=== PATIENT | male | born 1935 | race Caucasian/White ===

== ENCOUNTER → 2018-02-14 | Outpatient (CLI) | payer OTHER ==
[~2018-02-14] MED LIST: ALBU90OI INH; ATOR40TA PO; CALC.25 PO; CEFU500 PO; CETI10 PO; CETI5; CETI5 PO; CIPR500 PO; CITA20 PO; CYCL10 PO; CYCLOPHOSPHAMID50 MG; Calcitriol0.25 MCG PO; Coumadin5 MG PO; DILT240 PO; DILT300 PO; DILTIAZEM ER360 MG PO; DOXYCYCLINE PO; DULO60 PO; Drisdol50000 UNIT PO; ERGO50000; ERGO50000 PO; FAMO20 PO; FINA5 PO; FLEC100; FURO40; HEPARIN; HYDACE5 PO; HYDPAM50 PO; Kristalose20 GM PO; LEVSOD50 PO; LISI10; LOSA50; LOSHYD100 PO; METO100; METO100ER PO; MIRT15 PO; MIRTAZAPINE PO; MUPI2TC TOP; Norco 10-325 T1 EACH; OLME20 PO; PARI1 PO; POTCHL10ER; POTCHL10ER PO; PRAVASTATIN PO; Pravastatin Sod40 MG PO; RANI150; Remeron45 MG PO; SENN187 PO; SYNTHROID25 MCG PO; TAMS.4ER; TAMS.4ER PO; TAZTIA XT360 MG PO; TERA1 PO; TIROSINT75 MCG PO; TRIHYD253B; TRIHYD5075; TRIHYD5075 PO; TUDORZA PRESS400 MCG IH; TUDORZA PRESS400 MCG INH; WARF10; WARF10 PO; WARF5; WARF7.5; WARF7.5 PO; ZYRTEC10 M2 PO
[2018-02-14 09:47] LABS: Hematocrit 32.9 % (37.0-53.0); Hemoglobin 10.8 g/dL (13.5-17.5)
== END ==
LOC: LAB SHORT 09:36 → LAB 09:36
PROVIDERS: Internal Medicine
DX: D64.9 Anemia, unspecified (principal)
CPT/HCPCS: 85014; 85018

== ENCOUNTER → 2018-04-02 | Outpatient (CLI) | payer OTHER ==
[2018-04-02 11:44] LABS: Hematocrit 32.8 % (37.0-53.0); Hemoglobin 10.5 g/dL (13.5-17.5); Mean Corpuscular HGB 31.3 pg (26.0-34.0); Mean Corpuscular Volume 98 fL (80-100); Mean Platelet Volume 10.2 fL (9.1-12.4); Platelet Count 254 K/mm3 (150-400); RDW Coefficient Variation 15.4 % (11.7-14.2); RDW Standard Deviation 54.6 fL (35.1-46.3); Red Blood Cell Count 3.35 M/mm3 (4.30-5.90); White Blood Cell Count 30.86 K/mm3 (4.00-11.30)
[2018-04-02 12:52] LABS: BAND PERCENT MAN 2 % (0-8); BASOPHILS PERCENT MAN 0 % (0-2); EOSINOPHILS ABSOLUTE MAN 0.61 K/mm3 (0.00-0.68); EOSINOPHILS PERCENT MAN 2 % (0-6); LYMPHOCYTES ABSOLUTE MAN 25.92 K/mm3 (0.84-5.20); LYMPHOCYTES PERCENT MAN 84 % (21-46); MONOCYTES ABSOLUTE MAN 0.92 K/mm3 (0.16-1.47); MONOCYTES PERCENT MAN 3 % (4-13); NEUTROPHILS ABSOLUTE MAN 3.39 K/mm3 (1.96-9.15); SEG NEUTROPHILS PERCENT MAN 9 % (41-73); TOTAL CELLS COUNTED 100
== END ==
LOC: LAB 10:00 → LAB SHORT 10:00
PROVIDERS: Internal Medicine
DX: D72.829 Elevated white blood cell count, unspecified (principal); N18.6 End stage renal disease
CPT/HCPCS: 85025

== ENCOUNTER 2019-02-10 19:09 | Observation (INO) | payer OTHER ==
[~2019-02-10] VITALS: Ht 182.9 cm; Wt 116.8 kg
[~2019-02-10 19:09] MED LIST changes: -ERGO50000; +HYDR1TAB94 PO; -METO100ER PO; +METO50ER PO; +SEVEC800 PO; +Senna-Docusate1 EACH PO; +VENL75ER PO; +Voltaren100 GM TOP
[2019-02-10 19:51] LABS: BASOPHILS ABSOLUTE AUTO 0.06 K/mm3 (0.00-0.23); BASOPHILS PERCENT AUTO 1 % (0-2); EOSINOPHILS ABSOLUTE AUTO 0.25 K/mm3 (0.00-0.68); EOSINOPHILS PERCENT AUTO 3 % (0-6); Hematocrit 33.9 % (37.0-53.0); Hemoglobin 10.8 g/dL (13.5-17.5); IMMATURE GRAN ABSOLUTE AUTO 0.04 K/mm3 (0.00-0.10); IMMATURE GRAN PERCENT AUTO 1 % (0-1); LYMPHOCYTES ABSOLUTE AUTO 1.79 K/mm3 (0.84-5.20); LYMPHOCYTES PERCENT AUTO 22 % (21-46); MONOCYTES ABSOLUTE AUTO 1.45 K/mm3 (0.16-1.47); MONOCYTES PERCENT AUTO 18 % (4-13); Mean Corpuscular HGB 31.5 pg (26.0-34.0); Mean Corpuscular HGB Conc 31.9 g/dL (31.5-36.5); Mean Corpuscular Volume 99 fL (80-100); Mean Platelet Volume 9.3 fL (9.1-12.4); NEUTROPHILS ABSOLUTE AUTO 4.62 K/mm3 (1.96-9.15); NEUTROPHILS PERCENT AUTO 56 % (41-73); Platelet Count 221 K/mm3 (150-400); RDW Coefficient Variation 16.4 % (11.7-14.2); RDW Standard Deviation 59.3 fL (35.1-46.3); Red Blood Cell Count 3.43 M/mm3 (4.30-5.90); White Blood Cell Count 8.21 K/mm3 (4.00-11.30)
[2019-02-10 20:12] LABS: Albumin, Blood 3.1 g/dL (3.4-5.0); Albumin/Globulin Ratio 0.9 (0.8-1.8); Bilirubin, Total 0.7 mg/dL (0.1-1.0); Bun/Creatinine Ratio 9.4 (12.0-20.0); Calcium, Blood 8.7 mg/dL (8.5-10.1); Creatinine, Blood 7.42 mg/dL (0.60-1.20); Globulin, Blood 3.4 g/dL (2.2-4.0); Potassium, Blood 4.6 mmol/L (3.5-5.5); Total Protein, Blood 6.5 g/dL (6.4-8.2); Troponin I 0.094 ng/mL (0.000-0.040)
[2019-02-10] MEDS ORDERED: Flonase 0.05% N16 GM (21:28)
[2019-02-10] MEDS ORDERED: DONE10 PO (21:29)
[2019-02-10] MEDS ORDERED: CALQUENCE100 MG PO (21:58)
[2019-02-10] MEDS ORDERED: Vitamin D2000 UNIT PO (21:58)
[2019-02-10] MEDS ORDERED: VITAMIN D50000 UNIT PO (21:59)
[2019-02-10] MEDS ORDERED: ZYRTEC10 M2 PO (22:01)
[2019-02-10] MEDS ORDERED: Cymbalta20 MG PO (22:02)
[2019-02-10 22:21] LABS: International Normalized Ratio 1.32; Prothrombin Time Results 13.6 Sec (9.7-11.5)
[2019-02-10] MEDS ORDERED: DONE5 PO (23:24)
[2019-02-10] MEDS ORDERED: FINA5 PO (23:26)
--- NOTE | 2019-02-10 23:30 | NUR ---
PCU ADMIT PT BROUGHT TO PCU RM 16 FROM THE ER BY TARIK @ APPROX 2300. PT ABLE TO STAND AND TRANSFER TO PCU BED W/ SBA. PT A&O X4. VSS. DIALYSIS NURSE IN ROOM FOR IN ROOM HEMODIALYSIS UPON PT ARRIVAL. PT LUNG SOUNDS CLEAR, DIM IN BASES. SPO2 > 92% ON 2L NC. MONITOR SHOWS AFIB, HR 80-100. PT STATES HAVING MISSED DIALYSIS SUNDAY D/T DIARRHEA BUT REPORTS NO FURTHER DIARRHEA SINCE THEN, STATING BM TODAY TO BE FORMED. WILL CONTINUE TO MONITOR AND PROVIDE CARE.
--- NOTE | 2019-02-10 23:50 | NUR ---
STAT DIALYSIS ORDERED BY DR WILBURN. HD 1:1 NON-ROUTINE HOURS. PATIENT FROM ER TO PCU 16 VIA W/C. PT UNABLE TO LAY FLAT OR RECLINE DUE TO SOB. PATIENT POSITIONED IN BED WITH HEAD UP AND 02 PER N/C APPLIED WITH PATIONT VERB TOLERANCE. MAX UF ORDERED TOLERATED.
--- NOTE | 2019-02-11 03:01 | NUR ---
IN ROOM DIALYSIS BEGUN UPON PT ARRIVAL TO UNIT BY DIALYSIS NURSE. DIALYSIS COMPLETE @ APPROX 0230.
[2019-02-11 04:24] LABS: Albumin, Blood 2.8 g/dL (3.4-5.0); Anion Gap 7 mmol/L (6-16); Blood Urea Nitrogen 40 mg/dL (8-24); Bun/Creatinine Ratio 8.3 (12.0-20.0); CO2, Blood 29 mmol/L (21-32); Calcium, Blood 8.6 mg/dL (8.5-10.1); Chloride, Blood 106 mmol/L (98-108); Creatinine, Blood 4.82 mg/dL (0.60-1.20); Glomerular Filtration Rate 12 (60-); Glucose, Blood 80 mg/dL (70-99); Magnesium, Blood 2.2 mg/dL (1.6-2.4); Phosphorus, Blood 3.4 mg/dL (2.5-4.9); Potassium, Blood 3.7 mmol/L (3.5-5.5); Sodium, Blood 142 mmol/L (136-145)
--- NOTE | 2019-02-11 04:56 | NUR ---
SHIFT SUMMARY PT A&O X4. DIALYSIS DONE IN PT ROOM THIS SHIFT FROM APPROX 2300 TO APPROX 0230. LUNG SOUNDS CLEAR, SPO2 > 92% ON 2L NC OR CPAP. PT WEARING CPAP MAJORITY OF SHIFT. MONITOR SHOWS AFIB, HR 80-110. +1 EDEMA TO LOWER L LEG. TRACE EDEMA TO LOWER R LEG. PT IN BED W/ CALL LIGHT IN REACH. WILL CONTINUE TO MONITOR AND PROVIDE CARE UNTIL REPORT OFF TO DAY SHIFT RN.
[2019-02-11 12:29] LABS: International Normalized Ratio 1.32; Prothrombin Time Results 13.6 Sec (9.7-11.5)
[2019-02-11] MEDS ORDERED: WARF5 PO (12:31)
[2019-02-11] MEDS ORDERED: SEVE800 PO (12:33)
--- NOTE | 2019-02-11 13:35 | NUR ---
DISCHARGE NOTE PT STABLE FOR DISCHARGE. IV REMOVED. DISCHARGE INSTRUCTIONS AND DISCHARGE MEDICATIONS REVIEWED WITH PT AND DAUGHTER. PT AND DAUGHTER VERBALIZE UNDERSTANDING AND DENY QUESTIONS. PT DISCHARGED VIA WHEELCHAIR TO WAITING CAR WITH BELONGINGS.
== END 2019-02-11 13:34 | disposition home or self-care (01) ==
LOC: ER 19:09 → PCU 19:10
PROVIDERS: Emergency Medicine; ADMIT Internal Medicine
DX: I13.2 Hypertensive heart and chronic kidney disease with heart failure and with stage 5 chronic kidney disease, or end stage renal disease (principal); I50.30 Unspecified diastolic (congestive) heart failure; N18.6 End stage renal disease; R77.8 Other specified abnormalities of plasma proteins; J44.9 Chronic obstructive pulmonary disease, unspecified; I48.91 Unspecified atrial fibrillation; F32.9 Major depressive disorder, single episode, unspecified; G47.33 Obstructive sleep apnea (adult) (pediatric); Z99.2 Dependence on renal dialysis; Z87.442 Personal history of urinary calculi; Z79.01 Long term (current) use of anticoagulants; Z99.89 Dependence on other enabling machines and devices; Z79.899 Other long term (current) drug therapy; Z88.8 Allergy status to other drugs, medicaments and biological substances; Z88.2 Allergy status to sulfonamides; Z88.0 Allergy status to penicillin; Z88.1 Allergy status to other antibiotic agents
CPT/HCPCS: 36415; 71046; 80053; 80069; 83735; 83880; 84484; 85025; 85610; 93005; 93010; 94660; 94762; 99285-25; G0257; G0378

== ENCOUNTER 2019-04-22 05:26 | Emergency (ER) | payer OTHER ==
[~2019-04-22] VITALS: Ht 182.9 cm; Wt 120.2 kg
[~2019-04-22 05:26] MED LIST changes: +CALQUENCE100 MG PO; +Cymbalta20 MG PO; +DONE10 PO; +DONE5 PO; +Flonase 0.05% N16 GM; +SEVE800 PO; +VITAMIN D50000 UNIT PO; +Vitamin D2000 UNIT PO; +WARF5 PO
== END 2019-04-22 06:20 | disposition home or self-care (01) ==
LOC: ER 05:26
DX: K91.841 Postprocedural hemorrhage of a digestive system organ or structure following other procedure (principal); I12.0 Hypertensive chronic kidney disease with stage 5 chronic kidney disease or end stage renal disease; N18.6 End stage renal disease; I48.91 Unspecified atrial fibrillation; F32.9 Major depressive disorder, single episode, unspecified; Z87.891 Personal history of nicotine dependence; Z88.0 Allergy status to penicillin; Z88.1 Allergy status to other antibiotic agents; Z88.8 Allergy status to other drugs, medicaments and biological substances; Z79.899 Other long term (current) drug therapy; Z79.01 Long term (current) use of anticoagulants
CPT/HCPCS: 36416; 85610; 99282

== ENCOUNTER 2021-01-12 23:12 | Emergency (ER) | payer OTHER ==
[~2021-01-12] VITALS: Ht 185.4 cm; Wt 125.6 kg
[~2021-01-12 23:12] MED LIST changes: -Vitamin D2000 UNIT PO
[2021-01-12 23:38] LABS: BASOPHILS ABSOLUTE AUTO 0.03 K/mm3 (0.00-0.23); BASOPHILS PERCENT AUTO 1 % (0-2); EOSINOPHILS ABSOLUTE AUTO 0.53 K/mm3 (0.00-0.68); EOSINOPHILS PERCENT AUTO 11 % (0-6); Hematocrit 30.8 % (37.0-53.0); IMMATURE GRAN ABSOLUTE AUTO 0.05 K/mm3 (0.00-0.10); IMMATURE GRAN PERCENT AUTO 1 % (0-1); LYMPHOCYTES ABSOLUTE AUTO 1.19 K/mm3 (0.84-5.20); LYMPHOCYTES PERCENT AUTO 24 % (21-46); MONOCYTES ABSOLUTE AUTO 0.77 K/mm3 (0.16-1.47); MONOCYTES PERCENT AUTO 15 % (4-13); Mean Corpuscular HGB 33.8 pg (26.0-34.0); Mean Corpuscular HGB Conc 32.5 g/dL (31.5-36.5); Mean Corpuscular Volume 104 fL (80-100); Mean Platelet Volume 8.9 fL (9.1-12.4); NEUTROPHILS ABSOLUTE AUTO 2.46 K/mm3 (1.96-9.15); NEUTROPHILS PERCENT AUTO 49 % (41-73); Platelet Count 194 K/mm3 (150-400); RDW Coefficient Variation 14.6 % (11.7-14.2); RDW Standard Deviation 55.8 fL (35.1-46.3); Red Blood Cell Count 2.96 M/mm3 (4.30-5.90); White Blood Cell Count 5.03 K/mm3 (4.00-11.30)
[2021-01-12] MEDS ORDERED: OLANZAPINE PO (23:38)
[2021-01-12] MEDS ORDERED: METO25ER PO (23:38)
[2021-01-12] MEDS ORDERED: COLESTIPOL HCL1 G1 PO (23:39)
[2021-01-12] MEDS ORDERED: DICLOFENAC SOD100 G1 TOP (23:39)
[2021-01-12] MEDS ORDERED: DONEPEZIL HCL10 M1 PO (23:39)
[2021-01-12] MEDS ORDERED: ROPINIROLE HCL0.5 MG PO (23:40)
[2021-01-12] MEDS ORDERED: ATOR40TA PO (23:41)
[2021-01-12] MEDS ORDERED: OMEP20ER PO (23:41)
[2021-01-12] MEDS ORDERED: ONDA4ODT SL (23:42)
[2021-01-12] MEDS ORDERED: Acetaminophen325 M1 PO (23:43)
[2021-01-12] MEDS ORDERED: MERIBIN5 MG PO (23:44)
[2021-01-12] MEDS ORDERED: LOPE2C PO (23:45)
[2021-01-12] MEDS ORDERED: MIRALAX17 GM PO (23:46)
[2021-01-12] MEDS ORDERED: DIAPER RASH113 G1 TOP (23:47)
[2021-01-12] MEDS ORDERED: SENNA LAXATIVE8.6 MG PO (23:48)
[2021-01-12 23:58] LABS: Albumin/Globulin Ratio 0.8 (0.8-1.8); Bilirubin, Total 0.3 mg/dL (0.1-1.0); Bun/Creatinine Ratio 10.7 (12.0-20.0); Creatinine, Blood 6.52 mg/dL (0.60-1.20); Globulin, Blood 3.8 g/dL (2.2-4.0); Potassium, Blood 4.7 mmol/L (3.5-5.5); Total Protein, Blood 6.8 g/dL (6.4-8.2); Troponin I 0.06 ng/mL (0.000-0.040)
== END 2021-01-13 01:44 | disposition home or self-care (01) ==
LOC: ER 23:12
PROVIDERS: Emergency Medicine
DX: R06.00 Dyspnea, unspecified (principal); I10 Essential (primary) hypertension; I48.91 Unspecified atrial fibrillation; Z87.891 Personal history of nicotine dependence; Z88.2 Allergy status to sulfonamides; Z88.1 Allergy status to other antibiotic agents; Z79.899 Other long term (current) drug therapy
CPT/HCPCS: 36415; 71046; 80053; 83880; 84484; 85025; 93005; 93010; 99285-25

== ENCOUNTER 2021-01-19 08:12 | Emergency (ER) | payer OTHER ==
[~2021-01-19] VITALS: Ht 172.7 cm; Wt 122.5 kg
[~2021-01-19 08:12] MED LIST changes: +Acetaminophen325 M1 PO; +COLESTIPOL HCL1 G1 PO; +DIAPER RASH113 G1 TOP; +DICLOFENAC SOD100 G1 TOP; +DONEPEZIL HCL10 M1 PO; +LOPE2C PO; +MERIBIN5 MG PO; +METO25ER PO; +MIRALAX17 GM PO; +OLANZAPINE PO; +OMEP20ER PO; +ONDA4ODT SL; +ROPINIROLE HCL0.5 MG PO; +SENNA LAXATIVE8.6 MG PO
[2021-01-19 08:56] LABS: BASOPHILS ABSOLUTE AUTO 0.04 K/mm3 (0.00-0.23); BASOPHILS PERCENT AUTO 1 % (0-2); EOSINOPHILS ABSOLUTE AUTO 0.25 K/mm3 (0.00-0.68); EOSINOPHILS PERCENT AUTO 3 % (0-6); Hematocrit 24.8 % (37.0-53.0); Hemoglobin 7.9 g/dL (13.5-17.5); IMMATURE GRAN ABSOLUTE AUTO 0.03 K/mm3 (0.00-0.10); IMMATURE GRAN PERCENT AUTO 0 % (0-1); LYMPHOCYTES ABSOLUTE AUTO 1.81 K/mm3 (0.84-5.20); LYMPHOCYTES PERCENT AUTO 25 % (21-46); MONOCYTES ABSOLUTE AUTO 1.05 K/mm3 (0.16-1.47); MONOCYTES PERCENT AUTO 14 % (4-13); Mean Corpuscular HGB 33.9 pg (26.0-34.0); Mean Corpuscular HGB Conc 31.9 g/dL (31.5-36.5); Mean Corpuscular Volume 106 fL (80-100); NEUTROPHILS ABSOLUTE AUTO 4.13 K/mm3 (1.96-9.15); NEUTROPHILS PERCENT AUTO 57 % (41-73); Platelet Count 220 K/mm3 (150-400); RDW Coefficient Variation 15.7 % (11.7-14.2); RDW Standard Deviation 60.4 fL (35.1-46.3); Red Blood Cell Count 2.33 M/mm3 (4.30-5.90); White Blood Cell Count 7.31 K/mm3 (4.00-11.30)
[2021-01-19 09:04] LABS: Albumin, Blood 2.9 g/dL (3.4-5.0); Albumin/Globulin Ratio 0.7 (0.8-1.8); Bilirubin, Total 0.4 mg/dL (0.1-1.0); Calcium, Blood 8.6 mg/dL (8.5-10.1); Creatinine, Blood 6.24 mg/dL (0.60-1.20); Potassium, Blood 4.5 mmol/L (3.5-5.5); Total Protein, Blood 6.9 g/dL (6.4-8.2)
[2021-01-19 09:19] LABS: International Normalized Ratio 3.37
[2021-01-19] MEDS ORDERED: Norco 5-325 Ta1 EACH PO (09:53)
[2021-01-20] MEDS ORDERED: ESCI10 PO (19:00)
[2021-01-20] MEDS ORDERED: RENVELA800 MG PO (21:56)
[2021-01-20] MEDS ORDERED: ERGO50000 PO (22:55)
[2021-01-20] MEDS ORDERED: ALUM-MAG HYDROX30 ML PO (22:56)
== END 2021-01-19 10:10 | disposition home or self-care (01) ==
LOC: ER 08:12
PROVIDERS: Emergency Medicine
DX: S70.12XA Contusion of left thigh, initial encounter (principal); D68.59 Other primary thrombophilia; Z79.899 Other long term (current) drug therapy; Z88.1 Allergy status to other antibiotic agents; Z88.0 Allergy status to penicillin; Z88.2 Allergy status to sulfonamides; Z88.8 Allergy status to other drugs, medicaments and biological substances; Z79.4 Long term (current) use of insulin; X58.XXXA Exposure to other specified factors, initial encounter
CPT/HCPCS: 36415; 73552; 76882; 80053; 85025; 85610; 85730; 93005; 93010; 93971; 99284-25

== ENCOUNTER 2021-01-20 18:30 | Inpatient (IN) | payer OTHER, MEDICARE ==
[~2021-01-20] VITALS: Ht 185.4 cm; Wt 128.6 kg
[~2021-01-20 18:30] MED LIST changes: +Norco 5-325 Ta1 EACH PO
[2021-01-20] MEDS ORDERED: ESCI10 PO (19:00)
[2021-01-20 19:26] LABS: BASOPHILS ABSOLUTE AUTO 0.02 K/mm3 (0.00-0.23); BASOPHILS PERCENT AUTO 0 % (0-2); EOSINOPHILS ABSOLUTE AUTO 0.22 K/mm3 (0.00-0.68); EOSINOPHILS PERCENT AUTO 3 % (0-6); Hematocrit 21.5 % (37.0-53.0); IMMATURE GRAN ABSOLUTE AUTO 0.05 K/mm3 (0.00-0.10); IMMATURE GRAN PERCENT AUTO 1 % (0-1); LYMPHOCYTES ABSOLUTE AUTO 1.51 K/mm3 (0.84-5.20); LYMPHOCYTES PERCENT AUTO 20 % (21-46); MONOCYTES ABSOLUTE AUTO 0.92 K/mm3 (0.16-1.47); MONOCYTES PERCENT AUTO 12 % (4-13); Mean Corpuscular HGB 34.1 pg (26.0-34.0); Mean Corpuscular HGB Conc 32.6 g/dL (31.5-36.5); Mean Corpuscular Volume 105 fL (80-100); Mean Platelet Volume 9.1 fL (9.1-12.4); NEUTROPHILS ABSOLUTE AUTO 4.97 K/mm3 (1.96-9.15); NEUTROPHILS PERCENT AUTO 65 % (41-73); Platelet Count 231 K/mm3 (150-400); RDW Coefficient Variation 15.5 % (11.7-14.2); RDW Standard Deviation 59.2 fL (35.1-46.3); Red Blood Cell Count 2.05 M/mm3 (4.30-5.90); White Blood Cell Count 7.69 K/mm3 (4.00-11.30)
[2021-01-20 19:53] LABS: Albumin, Blood 2.7 g/dL (3.4-5.0); Albumin/Globulin Ratio 0.7 (0.8-1.8); Bilirubin, Total 0.7 mg/dL (0.1-1.0); Bun/Creatinine Ratio 10.1 (12.0-20.0); Calcium, Blood 8.6 mg/dL (8.5-10.1); Creatinine, Blood 4.95 mg/dL (0.60-1.20); Magnesium, Blood 1.7 mg/dL (1.6-2.4); Potassium, Blood 4.3 mmol/L (3.5-5.5); Total Protein, Blood 6.7 g/dL (6.4-8.2); Troponin I 0.077 ng/mL (0.000-0.040)
[2021-01-20 20:28] LABS: International Normalized Ratio 3.82; Prothrombin Time Results 38.2 Sec (9.7-11.5)
[2021-01-20] MEDS ORDERED: RENVELA800 MG PO (21:56)
[2021-01-20 22:28] LABS: Percent Saturation 26.6 % (20.0-50.0)
[2021-01-20] MEDS ORDERED: ERGO50000 PO (22:55)
[2021-01-20] MEDS ORDERED: ALUM-MAG HYDROX30 ML PO (22:56)
[2021-01-21 03:55] LABS: Hematocrit 20.3 % (37.0-53.0); Hemoglobin 6.6 g/dL (13.5-17.5); Mean Corpuscular HGB Conc 32.5 g/dL (31.5-36.5); Mean Corpuscular Volume 105 fL (80-100); Mean Platelet Volume 9.1 fL (9.1-12.4); Platelet Count 194 K/mm3 (150-400); RDW Coefficient Variation 15.6 % (11.7-14.2); RDW Standard Deviation 59.3 fL (35.1-46.3); Red Blood Cell Count 1.94 M/mm3 (4.30-5.90); White Blood Cell Count 6.57 K/mm3 (4.00-11.30)
[2021-01-21 04:13] LABS: Bun/Creatinine Ratio 10.4 (12.0-20.0); Calcium, Blood 8.2 mg/dL (8.5-10.1); Creatinine, Blood 5.41 mg/dL (0.60-1.20); Potassium, Blood 4.1 mmol/L (3.5-5.5)
--- NOTE | 2021-01-21 08:16 | NUR ---
Dr. Bell here. PT to have dialysis today.
--- NOTE | 2021-01-21 08:36 | NUR ---
pt c/o feeling like his breathing is "raspy". Dr. Jack here to see the patient, as well as Dr. Martel, who is going to order a breathing tx for the pt she stated. Phlebs here to do type and screen for 2 u PRBCs ordered for today with dialysis. Plan for dialysis today at 9 am. Pt does not appear to be in any distress, pleasantly conversant, and without any other complaints.
[2021-01-21 10:08] LABS: International Normalized Ratio 3.52; Prothrombin Time Results 35.4 Sec (9.7-11.5)
--- NOTE | 2021-01-21 20:02 | NUR ---
PATIENT HAD A VTACH UNSUSTAIN RUN, WITH AFIB AND PACING CHANGES, RECEIVED NEW ORDER FOR MAGNESIUM LAB DRAW AND EKG.
[2021-01-22 05:19] LABS: BASOPHILS ABSOLUTE AUTO 0.02 K/mm3 (0.00-0.23); BASOPHILS PERCENT AUTO 0 % (0-2); EOSINOPHILS ABSOLUTE AUTO 0.26 K/mm3 (0.00-0.68); EOSINOPHILS PERCENT AUTO 5 % (0-6); Hematocrit 22.9 % (37.0-53.0); Hemoglobin 7.4 g/dL (13.5-17.5); IMMATURE GRAN ABSOLUTE AUTO 0.04 K/mm3 (0.00-0.10); IMMATURE GRAN PERCENT AUTO 1 % (0-1); LYMPHOCYTES ABSOLUTE AUTO 1.02 K/mm3 (0.84-5.20); LYMPHOCYTES PERCENT AUTO 21 % (21-46); MONOCYTES ABSOLUTE AUTO 0.72 K/mm3 (0.16-1.47); MONOCYTES PERCENT AUTO 15 % (4-13); Mean Corpuscular HGB 32.7 pg (26.0-34.0); Mean Corpuscular HGB Conc 32.3 g/dL (31.5-36.5); Mean Corpuscular Volume 101 fL (80-100); Mean Platelet Volume 8.7 fL (9.1-12.4); NEUTROPHILS ABSOLUTE AUTO 2.91 K/mm3 (1.96-9.15); NEUTROPHILS PERCENT AUTO 59 % (41-73); Platelet Count 197 K/mm3 (150-400); RDW Standard Deviation 62.7 fL (35.1-46.3); Red Blood Cell Count 2.26 M/mm3 (4.30-5.90); White Blood Cell Count 4.97 K/mm3 (4.00-11.30)
[2021-01-22 05:31] LABS: International Normalized Ratio 2.41; Prothrombin Time Results 24.8 Sec (9.7-11.5)
[2021-01-22 05:37] LABS: Albumin, Blood 2.5 g/dL (3.4-5.0); Anion Gap 8 mmol/L (6-16); Blood Urea Nitrogen 57 mg/dL (8-24); Bun/Creatinine Ratio 10.6 (12.0-20.0); CO2, Blood 30 mmol/L (21-32); Calcium, Blood 8.4 mg/dL (8.5-10.1); Chloride, Blood 96 mmol/L (98-108); Glomerular Filtration Rate 11 (60-); Glucose, Blood 80 mg/dL (70-99); Phosphorus, Blood 6.8 mg/dL (2.5-4.9); Potassium, Blood 4.4 mmol/L (3.5-5.5); Sodium, Blood 134 mmol/L (136-145)
--- NOTE | 2021-01-22 08:55 | NUR ---
Dr. Jack here to see the patient. Device interrogation was ordered and completed and the bedside.
--- NOTE | 2021-01-22 08:59 | NUR ---
The pt was OOB to recliner chair for breakfast. He is now back in bed, CPAP ON, and he said he is very tired and would like to get some sleep.
--- NOTE | 2021-01-22 11:45 | NUR ---
Assisted to the chair at his request. States that his back is hurting. NOrco given for pain, as well as heating pad for relief.
--- NOTE | 2021-01-22 14:27 | NUR ---
Assisted pt back to bed from the chair at his request.
[2021-01-23 04:33] LABS: International Normalized Ratio 1.75; Prothrombin Time Results 18.3 Sec (9.7-11.5)
[2021-01-23 04:43] LABS: Albumin, Blood 2.5 g/dL (3.4-5.0); Anion Gap 7 mmol/L (6-16); Blood Urea Nitrogen 78 mg/dL (8-24); Bun/Creatinine Ratio 11.3 (12.0-20.0); CO2, Blood 29 mmol/L (21-32); Calcium, Blood 8.4 mg/dL (8.5-10.1); Chloride, Blood 96 mmol/L (98-108); Creatinine, Blood 6.93 mg/dL (0.60-1.20); Glomerular Filtration Rate 8 (60-); Glucose, Blood 100 mg/dL (70-99); Potassium, Blood 4.5 mmol/L (3.5-5.5); Sodium, Blood 132 mmol/L (136-145)
--- NOTE | 2021-01-23 05:58 | NUR ---
PT A/O X 3. RESTLESS T/O NOC. SITTING AT SIDE OF BED AND UP IN CHAIR MULTIPLE TIMES. STATES HE "JUST CANT GET COMFORTABLE". PLEASANT AND COOPERATIVE. IMPULSIVE AT TIMES. BED ALARM ON. USING CPAP MOST OF NOC. MEDICATED X1 FOR CHRONIC BACK PAIN. HEAT PACK APPLIED TO BACK WITH SOME RELIEF. VSS. NO QUESTIONS/CONCERNS AT THIS TIME. CALL LIGHT WITHIN REACH.
[2021-01-23 08:03] LABS: BASOPHILS ABSOLUTE AUTO 0.02 K/mm3 (0.00-0.23); BASOPHILS PERCENT AUTO 0 % (0-2); EOSINOPHILS ABSOLUTE AUTO 0.44 K/mm3 (0.00-0.68); EOSINOPHILS PERCENT AUTO 9 % (0-6); Hematocrit 21.8 % (37.0-53.0); Hemoglobin 7.1 g/dL (13.5-17.5); IMMATURE GRAN ABSOLUTE AUTO 0.03 K/mm3 (0.00-0.10); IMMATURE GRAN PERCENT AUTO 1 % (0-1); LYMPHOCYTES ABSOLUTE AUTO 0.92 K/mm3 (0.84-5.20); LYMPHOCYTES PERCENT AUTO 19 % (21-46); MONOCYTES ABSOLUTE AUTO 0.57 K/mm3 (0.16-1.47); MONOCYTES PERCENT AUTO 12 % (4-13); Mean Corpuscular HGB 33.5 pg (26.0-34.0); Mean Corpuscular HGB Conc 32.6 g/dL (31.5-36.5); Mean Corpuscular Volume 103 fL (80-100); Mean Platelet Volume 9.5 fL (9.1-12.4); NEUTROPHILS ABSOLUTE AUTO 2.82 K/mm3 (1.96-9.15); NEUTROPHILS PERCENT AUTO 59 % (41-73); Platelet Count 190 K/mm3 (150-400); RDW Coefficient Variation 16.3 % (11.7-14.2); RDW Standard Deviation 59.7 fL (35.1-46.3); Red Blood Cell Count 2.12 M/mm3 (4.30-5.90)
--- NOTE | 2021-01-23 17:03 | NUR ---
PT ASSISTED TO REPOSITION FREQUENTLY FROM BED TO CHAIR AND BACK; PT'S PACER INTERROGATED AND RESULTS CONFIRMED BY JOSEPH AT [facility] VIA PHONE; PT'S DAUGHTER SHIRA CALLED AND RECEIVED UPDATES; 1UNIT PRBC INITIATED AT 1135; PT TAKEN TO DIALYSIS AT 1404; PT REPORTED DISCOMFORT IN HIS SEAT FROM THE BED AND CHAIR SO WAFFLE OVERLAY PLACED IN ROOM; PT DENIED ADDITIONAL CONCERNS AT THIS TIME
[2021-01-24 04:59] LABS: BASOPHILS ABSOLUTE AUTO 0.03 K/mm3 (0.00-0.23); BASOPHILS PERCENT AUTO 1 % (0-2); EOSINOPHILS ABSOLUTE AUTO 0.64 K/mm3 (0.00-0.68); EOSINOPHILS PERCENT AUTO 11 % (0-6); Hematocrit 25.8 % (37.0-53.0); Hemoglobin 8.4 g/dL (13.5-17.5); IMMATURE GRAN ABSOLUTE AUTO 0.07 K/mm3 (0.00-0.10); IMMATURE GRAN PERCENT AUTO 1 % (0-1); LYMPHOCYTES ABSOLUTE AUTO 1.01 K/mm3 (0.84-5.20); LYMPHOCYTES PERCENT AUTO 18 % (21-46); MONOCYTES PERCENT AUTO 12 % (4-13); Mean Corpuscular HGB 32.8 pg (26.0-34.0); Mean Corpuscular HGB Conc 32.6 g/dL (31.5-36.5); Mean Corpuscular Volume 101 fL (80-100); NEUTROPHILS ABSOLUTE AUTO 3.21 K/mm3 (1.96-9.15); NEUTROPHILS PERCENT AUTO 57 % (41-73); Platelet Count 234 K/mm3 (150-400); RDW Coefficient Variation 16.3 % (11.7-14.2); RDW Standard Deviation 59.3 fL (35.1-46.3); Red Blood Cell Count 2.56 M/mm3 (4.30-5.90); White Blood Cell Count 5.66 K/mm3 (4.00-11.30)
[2021-01-24 05:13] LABS: International Normalized Ratio 1.59; Prothrombin Time Results 16.7 Sec (9.7-11.5)
[2021-01-24 05:21] LABS: Albumin, Blood 2.7 g/dL (3.4-5.0); Anion Gap 7 mmol/L (6-16); Blood Urea Nitrogen 66 mg/dL (8-24); Bun/Creatinine Ratio 10.8 (12.0-20.0); CO2, Blood 30 mmol/L (21-32); Calcium, Blood 8.6 mg/dL (8.5-10.1); Chloride, Blood 97 mmol/L (98-108); Glomerular Filtration Rate 9 (60-); Glucose, Blood 87 mg/dL (70-99); Phosphorus, Blood 6.3 mg/dL (2.5-4.9); Potassium, Blood 4.7 mmol/L (3.5-5.5); Sodium, Blood 134 mmol/L (136-145)
--- NOTE | 2021-01-24 06:05 | NUR ---
PT NOT RESTLESS AND IMPULSIVE PREVIOUS NIGHT. A/O X3-4. VSS. HEAT PAD, FREQUENT REPOSITIONING AND X1 DOSE PO NORCO GIVEN FOR CHRONIC BACK PAIN AND LLE PAIN. PT REPORTS LLE PAIN GREATLY IMPROVED WELL SWELLING. UPPER AIRWAY CONGESTION EARLY IN THE NIGHT BUT GRADUALLY CLEARED W/ PULMONARY TOILETING AND FREQUENT REPOSITIONING. PT DENIES NEEDS/CONCERNS AT THIS TIME.
[2021-01-24] MEDS ORDERED: VISBIOME 112.51 EACH PO (11:29)
[2021-01-24] MEDS ORDERED: FOLI1 PO (11:29)
[2021-01-24] MEDS ORDERED: AZIT250 PO (11:30)
[2021-01-24] MEDS ORDERED: CEFP200 PO (11:31)
--- NOTE | 2021-01-24 15:42 | NUR ---
DISCHARGE SUMMARY PT A&Ox3; FORGETFUL. PLEASANT AND COOPERATIVE WITH CARE. PT REPORTS LOWER BACK/HIP PAIN, DENIES NEED FOR MEDICATION T/O SHIFT. UP TO CHAIR AND BACK IN BED MULTIPLE TIMES. PT SOB WITH EXERTION ON 4L O2 VIA NC THIS AM, TITRATED TO 3L O2 VIA NC; HOME O2 EVALUATION COMPLETED TITRATED TO 2L O2 VIA NC. PT DENIES CHEST PAIN, NAUSEA AND DIZZINESS. PT RECEIVED ANTIBIOTICS AT 1445. VSS. NO OTHER ACUTE CHANGES NOTED. AWAITING PORTABLE O2 FOR DISCHARGE. WILL CONTINUE TO MONITOR.
--- NOTE | 2021-01-24 18:49 | NUR ---
EDUCATED PT AND DAUGHTER OF DISCHARGE INSTRUCTIONS, FOLLOW UP APPOINTMENTS AND LABS AND PRESCRIPTIONS. DEDE BROUGHT PORTABLE O2. PT LEFT ROOM VIA WHEELCHAIR WITH DAUGHTERS, PLANS TO RETURN TO THE [place] AT 1645.
== END 2021-01-24 16:45 | disposition home or self-care (01) | DRG 871 ==
LOC: ER 18:30 → PCU 21:53
PROVIDERS: Emergency Medicine; Family Medicine; Internal Medicine; ADMIT Internal Medicine
PROC: 5A1D70Z Performance of Urinary Filtration, Intermittent, Less than 6 Hours Per Day (ICD-10-PCS; principal; 2021-01-21)
PROC: 5A09357 Assistance with Respiratory Ventilation, Less than 24 Consecutive Hours, Continuous Positive Airway Pressure (ICD-10-PCS; 2021-01-21)
PROC: 5A1D70Z Performance of Urinary Filtration, Intermittent, Less than 6 Hours Per Day (ICD-10-PCS; 2021-01-23)
DX: A41.9 Sepsis, unspecified organism (principal); J18.9 Pneumonia, unspecified organism; J96.01 Acute respiratory failure with hypoxia; I21.A1 Myocardial infarction type 2; N18.6 End stage renal disease; J44.0 Chronic obstructive pulmonary disease with (acute) lower respiratory infection; C91.10 Chronic lymphocytic leukemia of B-cell type not having achieved remission; E87.2 Acidosis; I13.2 Hypertensive heart and chronic kidney disease with heart failure and with stage 5 chronic kidney disease, or end stage renal disease; I50.32 Chronic diastolic (congestive) heart failure; R65.20 Severe sepsis without septic shock; I48.91 Unspecified atrial fibrillation; F03.90 Unspecified dementia, unspecified severity, without behavioral disturbance, psychotic disturbance, mood disturbance, and anxiety; Z66 Do not resuscitate; F32.9 Major depressive disorder, single episode, unspecified; G47.33 Obstructive sleep apnea (adult) (pediatric); N40.0 Benign prostatic hyperplasia without lower urinary tract symptoms; M19.90 Unspecified osteoarthritis, unspecified site; E87.70 Fluid overload, unspecified; R79.1 Abnormal coagulation profile; D63.1 Anemia in chronic kidney disease; D53.9 Nutritional anemia, unspecified; Z99.81 Dependence on supplemental oxygen; Z99.2 Dependence on renal dialysis; Z87.440 Personal history of urinary (tract) infections; Z95.0 Presence of cardiac pacemaker; Z88.0 Allergy status to penicillin; Z88.2 Allergy status to sulfonamides; Z88.1 Allergy status to other antibiotic agents; Z88.3 Allergy status to other anti-infective agents; Z79.01 Long term (current) use of anticoagulants; Z79.899 Other long term (current) drug therapy; Z79.891 Long term (current) use of opiate analgesic; Z87.891 Personal history of nicotine dependence
CPT/HCPCS: 36415; 36430; 71045; 80048; 80053; 80069; 82607; 82728; 82746; 83540; 83550; 83605; 83735; 83880; 84145; 84484; 85025; 85027; 85610; 86850; 86900; 86901; 86923; 87040; 93005; 93010; 93306; 94640; 94660; 94761; 94762; 96365; 96367; 96375; 99285-25; A9270; C1751; J0456; J0696; J3370; J7050; J7120; P9016

== ENCOUNTER → 2021-02-08 | Outpatient (CLI) | payer OTHER ==
[~2021-02-08] MED LIST changes: +ALUM-MAG HYDROX30 ML PO; +AZIT250 PO; +CEFP200 PO; +ESCI10 PO; +FOLI1 PO; +RENVELA800 MG PO; +VISBIOME 112.51 EACH PO
[2021-02-08 09:26] LABS: Hematocrit 31.1 % (37.0-53.0); Hemoglobin 10.5 g/dL (13.5-17.5)
== END | disposition home or self-care (01) ==
LOC: LAB DAV 08:55
PROVIDERS: Internal Medicine
DX: N18.6 End stage renal disease (principal); D63.1 Anemia in chronic kidney disease; D50.9 Iron deficiency anemia, unspecified
CPT/HCPCS: 85014; 85018

== ENCOUNTER 2021-02-11 09:21 | Emergency (ER) | payer OTHER ==
[~2021-02-11] VITALS: Ht 177.8 cm; Wt 127.0 kg
[2021-02-11 09:54] LABS: BASOPHILS ABSOLUTE AUTO 0.05 K/mm3 (0.00-0.23); BASOPHILS PERCENT AUTO 1 % (0-2); EOSINOPHILS ABSOLUTE AUTO 0.67 K/mm3 (0.00-0.68); EOSINOPHILS PERCENT AUTO 6 % (0-6); Hematocrit 28.5 % (37.0-53.0); Hemoglobin 9.2 g/dL (13.5-17.5); IMMATURE GRAN ABSOLUTE AUTO 0.06 K/mm3 (0.00-0.10); IMMATURE GRAN PERCENT AUTO 1 % (0-1); LYMPHOCYTES ABSOLUTE AUTO 6.38 K/mm3 (0.84-5.20); LYMPHOCYTES PERCENT AUTO 58 % (21-46); MONOCYTES PERCENT AUTO 9 % (4-13); Mean Corpuscular HGB 34.1 pg (26.0-34.0); Mean Corpuscular HGB Conc 32.3 g/dL (31.5-36.5); Mean Corpuscular Volume 106 fL (80-100); Mean Platelet Volume 9.3 fL (9.1-12.4); NEUTROPHILS ABSOLUTE AUTO 2.81 K/mm3 (1.96-9.15); NEUTROPHILS PERCENT AUTO 26 % (41-73); Platelet Count 172 K/mm3 (150-400); RDW Coefficient Variation 16.5 % (11.7-14.2); RDW Standard Deviation 63.4 fL (35.1-46.3); White Blood Cell Count 10.97 K/mm3 (4.00-11.30)
[2021-02-11 10:21] LABS: Troponin I 0.03 ng/mL (0.000-0.040)
[2021-02-11 10:22] LABS: Albumin, Blood 2.9 g/dL (3.4-5.0); Albumin/Globulin Ratio 0.7 (0.8-1.8); BASOPHILS PERCENT MAN 0 % (0-2); Bilirubin, Total 0.7 mg/dL (0.1-1.0); Bun/Creatinine Ratio 9.3 (12.0-20.0); Calcium, Blood 8.3 mg/dL (8.5-10.1); Creatinine, Blood 5.69 mg/dL (0.60-1.20); EOSINOPHILS ABSOLUTE MAN 0.21 K/mm3 (0.00-0.68); EOSINOPHILS PERCENT MAN 2 % (0-6); Globulin, Blood 4.1 g/dL (2.2-4.0); LYMPHOCYTES ABSOLUTE MAN 6.69 K/mm3 (0.84-5.20); LYMPHOCYTES PERCENT MAN 61 % (21-46); MONOCYTES ABSOLUTE MAN 0.54 K/mm3 (0.16-1.47); MONOCYTES PERCENT MAN 5 % (4-13); NEUTROPHILS ABSOLUTE MAN 3.51 K/mm3 (1.96-9.15); Potassium, Blood 4.1 mmol/L (3.5-5.5); SEG NEUTROPHILS PERCENT MAN 32 % (41-73); TOTAL CELLS COUNTED 100
[2021-02-11 12:30] LABS: Prothrombin Time Results 40.3 Sec (9.7-11.5)
[2021-02-11 13:04] LABS: International Normalized Ratio 4.04
== END 2021-02-11 15:05 | disposition home or self-care (01) ==
LOC: ER 09:21
PROVIDERS: Emergency Medicine
DX: S00.83XA Contusion of other part of head, initial encounter (principal); I13.2 Hypertensive heart and chronic kidney disease with heart failure and with stage 5 chronic kidney disease, or end stage renal disease; N18.6 End stage renal disease; I50.32 Chronic diastolic (congestive) heart failure; I48.91 Unspecified atrial fibrillation; Z99.2 Dependence on renal dialysis; Z79.01 Long term (current) use of anticoagulants; Z87.891 Personal history of nicotine dependence
CPT/HCPCS: 70450; 80053; 84484; 85025; 85610; 93005; 93010; 99284-25; J7030

== ENCOUNTER 2021-02-28 00:53 | Day surgery (SDC) | payer OTHER | END 2021-02-28 11:50 | disposition home or self-care (01) | LOC: ATC 00:53 | DX: C91.00 Acute lymphoblastic leukemia not having achieved remission (principal); N18.6 End stage renal disease; Z99.2 Dependence on renal dialysis; Z87.891 Personal history of nicotine dependence; Z88.1 Allergy status to other antibiotic agents; Z88.0 Allergy status to penicillin; Z88.8 Allergy status to other drugs, medicaments and biological substances; Z91.81 History of falling; Z79.01 Long term (current) use of anticoagulants | CPT/HCPCS: 86850; 86880; 86900; 86901; 86923; A9270; J7050; P9016 ==

== ENCOUNTER 2021-04-20 04:24 | Inpatient (IN) | payer OTHER ==
[~2021-04-20] VITALS: Ht 167.6 cm; Wt 119.0 kg
[2021-04-20 04:56] LABS: BASOPHILS ABSOLUTE AUTO 0.01 K/mm3 (0.00-0.23); BASOPHILS PERCENT AUTO 0 % (0-2); EOSINOPHILS PERCENT AUTO 0 % (0-6); Hemoglobin 10.7 g/dL (13.5-17.5); IMMATURE GRAN ABSOLUTE AUTO 0.04 K/mm3 (0.00-0.10); IMMATURE GRAN PERCENT AUTO 1 % (0-1); LYMPHOCYTES ABSOLUTE AUTO 4.15 K/mm3 (0.84-5.20); LYMPHOCYTES PERCENT AUTO 70 % (21-46); MONOCYTES ABSOLUTE AUTO 0.37 K/mm3 (0.16-1.47); MONOCYTES PERCENT AUTO 6 % (4-13); Mean Corpuscular HGB 33.3 pg (26.0-34.0); Mean Corpuscular HGB Conc 31.5 g/dL (31.5-36.5); Mean Corpuscular Volume 106 fL (80-100); Mean Platelet Volume 10.2 fL (9.1-12.4); NEUTROPHILS ABSOLUTE AUTO 1.33 K/mm3 (1.96-9.15); NEUTROPHILS PERCENT AUTO 23 % (41-73); NRBC ABSOLUTE 0.02 K/mm3 (0.00-0.02); NRBC Auto 0.3 /100 WBC (0.0-0.2); Platelet Count 124 K/mm3 (150-400); RDW Coefficient Variation 16.9 % (11.7-14.2); RDW Standard Deviation 66.4 fL (35.1-46.3); Red Blood Cell Count 3.21 M/mm3 (4.30-5.90)
[2021-04-20 05:15] LABS: Albumin, Blood 2.7 g/dL (3.4-5.0); Albumin/Globulin Ratio 0.7 (0.8-1.8); Bilirubin, Total 0.4 mg/dL (0.1-1.0); Bun/Creatinine Ratio 5.4 (12.0-20.0); Calcium, Blood 7.1 mg/dL (8.5-10.1); Creatinine, Blood 6.85 mg/dL (0.60-1.20); Globulin, Blood 3.8 g/dL (2.2-4.0); Potassium, Blood 3.9 mmol/L (3.5-5.5); Total Protein, Blood 6.5 g/dL (6.4-8.2); Troponin I 0.13 ng/mL (0.000-0.040)
[2021-04-20 06:23] LABS: Prothrombin Time Results 50.8 Sec (9.7-11.5)
[2021-04-20 06:32] LABS: International Normalized Ratio 5.16
[2021-04-20 09:03] LABS: SARS-Cov-2 (COVID-19) PCR, MMC POSITIVE (NEGATIVE)
[2021-04-20 15:42] LABS: International Normalized Ratio 1.74
[2021-04-20 16:12] LABS: Prothrombin Time Results 18.2 Sec (9.7-11.5)
[2021-04-20 17:14] LABS: Source, Urine Catheter
[2021-04-20 17:18] LABS: Hemoglobin 9.2 g/dL (13.5-17.5); Mean Corpuscular HGB 33.7 pg (26.0-34.0); Mean Corpuscular HGB Conc 31.7 g/dL (31.5-36.5); Mean Corpuscular Volume 106 fL (80-100); Mean Platelet Volume 10.4 fL (9.1-12.4); Platelet Count 120 K/mm3 (150-400); RDW Standard Deviation 65.9 fL (35.1-46.3); Red Blood Cell Count 2.73 M/mm3 (4.30-5.90); White Blood Cell Count 5.13 K/mm3 (4.00-11.30)
[2021-04-20 17:32] LABS: Appearance, Urine Clear (Clear); Bilirubin, Urine Neg (Neg); Blood, Urine 4+ (Neg); Color, Urine Yellow (P-Yellow); Glucose Qualitative, Urine Neg (Neg); Ketones, Urine Neg (Neg); Leukocyte Esterase, Urine Neg (Neg); Nitrite, Urine Neg (Neg); Protein, Urine 3+ (Neg); Specific Gravity, Urine 1.005 (1.003-1.022); Urobilinogen, Urine NORM (Normal)
[2021-04-20 18:01] LABS: Red Blood Cells, Urine 25-50 /hpf (0-2); Squamous Epithelial Cells Few /hpf (Few); White Blood Cells, Urine 0-2 /hpf (0-5)
[2021-04-20 18:02] LABS: Bacteria Few /hpf
[2021-04-20 18:03] LABS: Hyaline Casts 0-2 /lpf (0-2)
[2021-04-20 18:20] LABS: BASOPHILS PERCENT MAN 0 % (0-2); EOSINOPHILS PERCENT MAN 0 % (0-6); LYMPHOCYTES PERCENT MAN 78 % (21-46); MONOCYTES PERCENT MAN 0 % (4-13); NEUTROPHILS ABSOLUTE MAN 1.12 K/mm3 (1.96-9.15); SEG NEUTROPHILS PERCENT MAN 22 % (41-73); TOTAL CELLS COUNTED 100
[2021-04-20 20:35] LABS: International Normalized Ratio 1.42
[2021-04-20 20:43] LABS: PCO2 Arterial 66.2 mmHg (35-45); PO2 Arterial 98.1 mmHg (80-100)
[2021-04-20 21:00] LABS: Hematocrit 28.2 % (37.0-53.0)
[2021-04-21 09:59] LABS: BASOPHILS PERCENT AUTO 0 % (0-2); EOSINOPHILS PERCENT AUTO 0 % (0-6); Hematocrit 24.9 % (37.0-53.0); Hemoglobin 8.1 g/dL (13.5-17.5); IMMATURE GRAN ABSOLUTE AUTO 0.04 K/mm3 (0.00-0.10); IMMATURE GRAN PERCENT AUTO 1 % (0-1); LYMPHOCYTES ABSOLUTE AUTO 3.08 K/mm3 (0.84-5.20); LYMPHOCYTES PERCENT AUTO 77 % (21-46); MONOCYTES ABSOLUTE AUTO 0.19 K/mm3 (0.16-1.47); MONOCYTES PERCENT AUTO 5 % (4-13); Mean Corpuscular HGB Conc 32.5 g/dL (31.5-36.5); Mean Corpuscular Volume 105 fL (80-100); Mean Platelet Volume 10.6 fL (9.1-12.4); NEUTROPHILS ABSOLUTE AUTO 0.69 K/mm3 (1.96-9.15); NEUTROPHILS PERCENT AUTO 17 % (41-73); Platelet Count 109 K/mm3 (150-400); RDW Coefficient Variation 16.5 % (11.7-14.2); RDW Standard Deviation 63.7 fL (35.1-46.3); Red Blood Cell Count 2.38 M/mm3 (4.30-5.90)
[2021-04-21 10:12] LABS: Albumin, Blood 2.2 g/dL (3.4-5.0); Anion Gap 8 mmol/L (6-16); Blood Urea Nitrogen 52 mg/dL (8-24); Bun/Creatinine Ratio 6.6 (12.0-20.0); CO2, Blood 30 mmol/L (21-32); Calcium, Blood 6.5 mg/dL (8.5-10.1); Chloride, Blood 100 mmol/L (98-108); Creatinine, Blood 7.86 mg/dL (0.60-1.20); Glomerular Filtration Rate 7 (60-); Glucose, Blood 91 mg/dL (70-99); Phosphorus, Blood 7.2 mg/dL (2.5-4.9); Potassium, Blood 4.2 mmol/L (3.5-5.5); Sodium, Blood 138 mmol/L (136-145)
[2021-04-22 04:18] LABS: BASOPHILS PERCENT AUTO 0 % (0-2); EOSINOPHILS PERCENT AUTO 0 % (0-6); Hematocrit 23.5 % (37.0-53.0); Hemoglobin 7.5 g/dL (13.5-17.5); IMMATURE GRAN ABSOLUTE AUTO 0.04 K/mm3 (0.00-0.10); IMMATURE GRAN PERCENT AUTO 1 % (0-1); LYMPHOCYTES ABSOLUTE AUTO 2.79 K/mm3 (0.84-5.20); LYMPHOCYTES PERCENT AUTO 67 % (21-46); MONOCYTES ABSOLUTE AUTO 0.19 K/mm3 (0.16-1.47); MONOCYTES PERCENT AUTO 5 % (4-13); Mean Corpuscular HGB 33.9 pg (26.0-34.0); Mean Corpuscular HGB Conc 31.9 g/dL (31.5-36.5); Mean Corpuscular Volume 106 fL (80-100); Mean Platelet Volume 10.7 fL (9.1-12.4); NEUTROPHILS ABSOLUTE AUTO 1.12 K/mm3 (1.96-9.15); NEUTROPHILS PERCENT AUTO 27 % (41-73); Platelet Count 107 K/mm3 (150-400); RDW Coefficient Variation 16.3 % (11.7-14.2); RDW Standard Deviation 63.7 fL (35.1-46.3); Red Blood Cell Count 2.21 M/mm3 (4.30-5.90); White Blood Cell Count 4.14 K/mm3 (4.00-11.30)
[2021-04-22 04:36] LABS: Albumin, Blood 2.3 g/dL (3.4-5.0); Albumin/Globulin Ratio 0.7 (0.8-1.8); Bilirubin, Total 0.6 mg/dL (0.1-1.0); Bun/Creatinine Ratio 7.2 (12.0-20.0); Creatinine, Blood 5.73 mg/dL (0.60-1.20); Globulin, Blood 3.1 g/dL (2.2-4.0); Potassium, Blood 3.9 mmol/L (3.5-5.5); Total Protein, Blood 5.4 g/dL (6.4-8.2)
[2021-04-23 05:31] LABS: Base Excess Venous 1.2 mmol/L; Bicarbonate Venous 25.3 mmol/L (24.0-30.0); PCO2 Venous 42.7 mmHg (38-42); PO2 Venous 108 mmHg (38-42); pH Blood Venous 7.39 (7.34-7.37)
[2021-04-23 06:01] LABS: BASOPHILS PERCENT AUTO 0 % (0-2); EOSINOPHILS PERCENT AUTO 0 % (0-6); Hematocrit 25.9 % (37.0-53.0); Hemoglobin 8.2 g/dL (13.5-17.5); IMMATURE GRAN ABSOLUTE AUTO 0.08 K/mm3 (0.00-0.10); IMMATURE GRAN PERCENT AUTO 2 % (0-1); LYMPHOCYTES ABSOLUTE AUTO 3.61 K/mm3 (0.84-5.20); LYMPHOCYTES PERCENT AUTO 67 % (21-46); MONOCYTES ABSOLUTE AUTO 0.18 K/mm3 (0.16-1.47); MONOCYTES PERCENT AUTO 3 % (4-13); Mean Corpuscular HGB Conc 31.7 g/dL (31.5-36.5); Mean Corpuscular Volume 108 fL (80-100); Mean Platelet Volume 10.8 fL (9.1-12.4); NEUTROPHILS ABSOLUTE AUTO 1.49 K/mm3 (1.96-9.15); NEUTROPHILS PERCENT AUTO 28 % (41-73); Platelet Count 116 K/mm3 (150-400); RDW Coefficient Variation 16.3 % (11.7-14.2); RDW Standard Deviation 63.9 fL (35.1-46.3); Red Blood Cell Count 2.41 M/mm3 (4.30-5.90); White Blood Cell Count 5.36 K/mm3 (4.00-11.30)
[2021-04-23 06:20] LABS: Bun/Creatinine Ratio 9.5 (12.0-20.0); Calcium, Blood 7.9 mg/dL (8.5-10.1); Creatinine, Blood 6.84 mg/dL (0.60-1.20); Potassium, Blood 4.4 mmol/L (3.5-5.5)
[2021-04-24 05:29] LABS: BASOPHILS ABSOLUTE AUTO 0.01 K/mm3 (0.00-0.23); BASOPHILS PERCENT AUTO 0 % (0-2); EOSINOPHILS PERCENT AUTO 0 % (0-6); Hematocrit 29.2 % (37.0-53.0); Hemoglobin 9.2 g/dL (13.5-17.5); IMMATURE GRAN ABSOLUTE AUTO 0.15 K/mm3 (0.00-0.10); IMMATURE GRAN PERCENT AUTO 2 % (0-1); LYMPHOCYTES ABSOLUTE AUTO 3.52 K/mm3 (0.84-5.20); LYMPHOCYTES PERCENT AUTO 44 % (21-46); MONOCYTES ABSOLUTE AUTO 0.43 K/mm3 (0.16-1.47); MONOCYTES PERCENT AUTO 5 % (4-13); Mean Corpuscular HGB 33.8 pg (26.0-34.0); Mean Corpuscular HGB Conc 31.5 g/dL (31.5-36.5); Mean Corpuscular Volume 107 fL (80-100); Mean Platelet Volume 10.9 fL (9.1-12.4); NEUTROPHILS ABSOLUTE AUTO 3.82 K/mm3 (1.96-9.15); NEUTROPHILS PERCENT AUTO 48 % (41-73); Platelet Count 146 K/mm3 (150-400); Red Blood Cell Count 2.72 M/mm3 (4.30-5.90); White Blood Cell Count 7.93 K/mm3 (4.00-11.30)
[2021-04-24 05:49] LABS: Bun/Creatinine Ratio 10.1 (12.0-20.0); Calcium, Blood 7.6 mg/dL (8.5-10.1); Creatinine, Blood 5.14 mg/dL (0.60-1.20)
[2021-04-26 05:48] LABS: Hematocrit 26.1 % (37.0-53.0); Hemoglobin 8.4 g/dL (13.5-17.5)
[2021-04-26 06:11] LABS: Albumin, Blood 2.5 g/dL (3.4-5.0); Anion Gap 8 mmol/L (6-16); Blood Urea Nitrogen 86 mg/dL (8-24); Bun/Creatinine Ratio 12.3 (12.0-20.0); CO2, Blood 27 mmol/L (21-32); Calcium, Blood 7.8 mg/dL (8.5-10.1); Chloride, Blood 103 mmol/L (98-108); Creatinine, Blood 6.98 mg/dL (0.60-1.20); Glomerular Filtration Rate 8 (60-); Glucose, Blood 92 mg/dL (70-99); Phosphorus, Blood 7.1 mg/dL (2.5-4.9); Potassium, Blood 4.8 mmol/L (3.5-5.5); Sodium, Blood 138 mmol/L (136-145)
[2021-04-27 05:10] LABS: Hematocrit 30.5 % (37.0-53.0); Hemoglobin 9.5 g/dL (13.5-17.5)
[2021-04-27 05:43] LABS: Albumin, Blood 2.6 g/dL (3.4-5.0); Anion Gap 13 mmol/L (6-16); Blood Urea Nitrogen 72 mg/dL (8-24); CO2, Blood 24 mmol/L (21-32); Calcium, Blood 8.9 mg/dL (8.5-10.1); Chloride, Blood 104 mmol/L (98-108); Creatinine, Blood 5.55 mg/dL (0.60-1.20); Glomerular Filtration Rate 10 (60-); Glucose, Blood 101 mg/dL (70-99); Phosphorus, Blood 6.1 mg/dL (2.5-4.9); Potassium, Blood 4.4 mmol/L (3.5-5.5); Sodium, Blood 141 mmol/L (136-145)
[2021-04-27 06:10] LABS: HBSAG SCREEN Negative (Negative)
== END 2021-04-29 13:49 | DRG 871 ==
LOC: ER 04:24 → MEDS 06:18 → PCU 06:18 → MEDS 04-22 17:20
PROVIDERS: Emergency Medicine; Family Medicine; Internal Medicine; Student in an Organized Health Care Education/Training Program; ADMIT Internal Medicine
PROC: 02HV33Z Insertion of Infusion Device into Superior Vena Cava, Percutaneous Approach (ICD-10-PCS; principal; 2021-04-20)
PROC: 3E043XZ Introduction of Vasopressor into Central Vein, Percutaneous Approach (ICD-10-PCS; 2021-04-20)
PROC: 8E0ZXY6 Isolation (ICD-10-PCS; 2021-04-20)
PROC: 3E0333Z Introduction of Anti-inflammatory into Peripheral Vein, Percutaneous Approach (ICD-10-PCS; 2021-04-20)
PROC: 30233K1 Transfusion of Nonautologous Frozen Plasma into Peripheral Vein, Percutaneous Approach (ICD-10-PCS; 2021-04-20)
PROC: 5A09457 Assistance with Respiratory Ventilation, 24-96 Consecutive Hours, Continuous Positive Airway Pressure (ICD-10-PCS; 2021-04-20)
PROC: 5A1D70Z Performance of Urinary Filtration, Intermittent, Less than 6 Hours Per Day (ICD-10-PCS; 2021-04-21)
DX: A41.89 Other specified sepsis (principal); U07.1 COVID-19; N18.6 End stage renal disease; J12.82 Pneumonia due to coronavirus disease 2019; R65.21 Severe sepsis with septic shock; J96.01 Acute respiratory failure with hypoxia; I21.A1 Myocardial infarction type 2; C91.10 Chronic lymphocytic leukemia of B-cell type not having achieved remission; I13.2 Hypertensive heart and chronic kidney disease with heart failure and with stage 5 chronic kidney disease, or end stage renal disease; I50.32 Chronic diastolic (congestive) heart failure; I48.20 Chronic atrial fibrillation, unspecified; E27.2 Addisonian crisis; E27.49 Other adrenocortical insufficiency; T82.838A Hemorrhage due to vascular prosthetic devices, implants and grafts, initial encounter; E87.4 Mixed disorder of acid-base balance; I42.9 Cardiomyopathy, unspecified; Z66 Do not resuscitate; Z51.5 Encounter for palliative care; E83.39 Other disorders of phosphorus metabolism; R45.1 Restlessness and agitation; E87.70 Fluid overload, unspecified; F03.90 Unspecified dementia, unspecified severity, without behavioral disturbance, psychotic disturbance, mood disturbance, and anxiety; F32.9 Major depressive disorder, single episode, unspecified; D63.1 Anemia in chronic kidney disease; G47.33 Obstructive sleep apnea (adult) (pediatric); E78.5 Hyperlipidemia, unspecified; D69.6 Thrombocytopenia, unspecified; N40.0 Benign prostatic hyperplasia without lower urinary tract symptoms; M19.90 Unspecified osteoarthritis, unspecified site; R79.1 Abnormal coagulation profile; Z87.442 Personal history of urinary calculi; Z89.112 Acquired absence of left hand; Z88.1 Allergy status to other antibiotic agents; Z88.0 Allergy status to penicillin; Z88.2 Allergy status to sulfonamides; Z88.8 Allergy status to other drugs, medicaments and biological substances; Z99.2 Dependence on renal dialysis; Z98.890 Other specified postprocedural states; Z95.0 Presence of cardiac pacemaker; Z87.440 Personal history of urinary (tract) infections; Z95.828 Presence of other vascular implants and grafts; Z87.891 Personal history of nicotine dependence; Z79.01 Long term (current) use of anticoagulants; Z79.899 Other long term (current) drug therapy; Y83.8 Other surgical procedures as the cause of abnormal reaction of the patient, or of later complication, without mention of misadventure at the time of the procedure
CPT/HCPCS: 36415; 36430; 36556; 36600; 71045; 80048; 80053; 80069; 80400; 81001; 82330; 82533; 82803; 82947; 83605; 84145; 84484; 85014; 85018; 85025; 85610; 85730; 86900; 86901; 87040; 87086; 87340; 93005; 93010; 93308; 93321; 94660; 94762; 96365-59; 96366-59; 96368; 96376-59; 99285-25; A9270; C1751; J0456; J0696; J0834; J0881; J1100; J1265; J1644; J3370; J3430; J7050; J7060; J7120; P9059; U0004